=== PATIENT | male | born 1970 | race American Indian/Alaskan Native ===

== ENCOUNTER 2017-04-16 08:09 | Outpatient (CLI) | payer OTHER ==
--- NOTE | 2017-04-16 11:52 | Cat Scan Report ---
CT ABDOMEN AND PELVIS WITH CONTRAST: 04/16/17 08:09:00 CLINICAL: Prominent ileocecal valve. COMPARISON: None. TECHNIQUE: Volumetric acquisition and 1.25 millimeter scan reconstructions after the uneventful intravenous injection of 100 cc Omnipaque 300. Consent was obtained prior to the administration of contrast. Oral contrast was also given. FINDINGS: Abdomen: The liver is small with the right lobe measuring 10 cm in length. The gallbladder fossa is very prominent and the left hepatic lobe is relatively small. The liver is diffusely hypodense relative to the spleen. The a few tiny right hepatic hypodensities are likely benign cysts. No liver mass. The gallbladder and bile ducts are normal. Normal stomach, duodenum, pancreas and spleen. Normal aorta and inferior vena cava. The adrenal glands are normal. The right kidney is normal. A 3.3 cm left lower pole renal cyst and otherwise normal left kidney. The renal collecting systems and ureters are nondilated. No renal calculus or mass. The small bowel is normal.Normal ascending colon with a fatty ileocecal valve. The terminal ileum and appendix are normal. Normal transverse and descending colon. No mass, lymphadenopathy or ascites.An umbilical hernia with a midline fascial defect measuring 2.3 cm transverse dimension by 2.5 cm craniocaudal dimension. The hernia predominantly contains fat but a small knuckle of small bowel extends into the hernia. No bowel obstruction. Pelvis: Normal urinary bladder, prostate, seminal vesicles and rectum. Normal sigmoid colon. No pelvic mass, fluid or lymphadenopathy. No inguinal hernia. Bone windows demonstrate no bone lesion. Degenerative changes in the spine. IMPRESSION:1. Small liver suggestive of cirrhosis but no signs of portal hypertension. 2. Hepatic steatosis. 3. Umbilical hernia containing predominantly fat and a portion of a small bowel loop. No bowel obstruction. 4. 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 5. No mass.
== END 2017-04-16 08:10 | disposition home or self-care (01) ==
LOC: SPVIMAG 08:09
PROVIDERS: ATTEND Internal Medicine Gastroenterology
DX: K63.9 Disease of intestine, unspecified (principal); N28.1 Cyst of kidney, acquired; K42.9 Umbilical hernia without obstruction or gangrene; M47.899 Other spondylosis, site unspecified
CPT/HCPCS: 74177; Q9967